=== PATIENT | male | born 1970 | race African-American/Black ===

== ENCOUNTER 2022-06-27 20:36 | Inpatient (IN) | payer OTHER ==
[~2022-06-27] VITALS: Ht 180.3 cm; Wt 105.6 kg
[2022-06-27] MEDS ORDERED: LISI-893 PO (21:49)
[2022-06-27] MEDS ORDERED: ONDANSETRON HCL 4 MG/2 ML VIAL IVP ONE (22:30)
[2022-06-27] MEDS ORDERED: MORPHINE SULFATE 4 MG/ML SYRINGE IVP ONE (22:30)
[2022-06-27] MEDS ORDERED: NITROGLYCERIN 2% (1 GM=INCH) PACKET TP ONE (22:45)
[2022-06-27 22:53] LABS: ANION GAP 10 mmol/L (8-16); CALCIUM, TOTAL 8.3 mg/dL (8.8-10.5); CARBON DIOXIDE 27 mmol/L (22-29); CHLORIDE 103 mmol/L (98-107); CREATININE 1.19 mg/dL (0.60-1.30); GLUCOSE,RANDOM 81 mg/dL (70-110); POTASSIUM 3.8 mmol/L (3.5-5.1); SODIUM SERUM 140 mmol/L (136-145); UREA NITROGEN, BLOOD 14 mg/dL (7-18)
[2022-06-27 22:54] LABS: BASOPHILS % (AUTO) 0.5 % (0.0-2.0); EOSINOPHILS % (AUTO) 1.2 % (1.0-6.0); HEMATOCRIT 41.3 % (41-53); HEMOGLOBIN 13.7 g/dL (13.5-17.5); LYMPHOCYTES # (AUTO) 2.9 K/uL (1.0-4.8); LYMPHOCYTES % (AUTO) 30.6 % (22.0-44.0); MEAN CORPUSCULAR HEMOGLOBIN 27.4 pg (26.0-34.0); MEAN CORPUSCULAR HGB CONC 33.2 G/dL (31.0-37.0); MEAN CORPUSCULAR VOLUME 83 fL (80-100); MONOCYTES % (AUTO) 10.2 % (2.0-9.0); NEUTROPHILS # (AUTO) 5.5 K/uL (1.8-7.7); NEUTROPHILS % (AUTO) 57.5 % (40.0-70.0); PLATELET COUNT (AUTO) 269 K/uL (150-450); RED CELL DISTRIBUTION WIDTH 14.9 % (11.5-14.5)
[2022-06-27 22:57] LABS: B-TYPE NATRIURETIC PEPTIDE 5 pg/mL (0-100); GLOMERULAR FILTR. RATE CALC > 60 mL/min (>60)
[2022-06-27] MEDS ORDERED: ONDANSETRON HCL 4 MG/2 ML VIAL IVP PRN (23:15)
[2022-06-27 23:18] LABS: ALANINE AMINOTRANSFERASE 26 U/L (12-78); ALBUMIN 3.5 g/dL (3.4-5.0); ALKALINE PHOSPHATASE 77 U/L (46-116); ASPARTATE AMINOTRANSFERASE 14 U/L (15-37); BILIRUBIN,TOTAL 0.3 mg/dL (0.1-1.0); CREATINE KINASE, TOTAL ONLY 119 U/L (39-308); TOTAL PROTEIN, SERUM 6.8 g/dL (6.4-8.2)
[2022-06-27] MEDS: ASPIRIN 81 MG CHEWABLE TABLET PO SCH (23:22)
[2022-06-27 23:31] LABS: COVID AG,FIA SOURCE NASAL SWAB
[2022-06-28 00:24] LABS: CHOL/HDL RATIO 3.2 (4.2-7.3); CHOLESTEROL 147 mg/dL (131-200); HDL CHOLESTEROL 46 mg/dL (40-60); LDL CHOL (CALC.) 89 mg/dL (0-130); TRIGLYCERIDES 62 mg/dL (15-150)
[2022-06-28 09:07] VITALS: BP 128/69
[2022-06-28] MEDS: ENOXAPARIN SODIUM 40 MG/0.4 ML PF SYRINGE SQ SCH (09:21)
[2022-06-28] MEDS ORDERED: NITROGLYCERIN 0.4 MG SUBLINGUAL TABLET #25 SL PRN (11:45)
[2022-06-28] MEDS: PANTOPRAZOLE SODIUM 40 MG DR TABLET PO SCH (11:58)
[2022-06-28 12:00] VITALS: BP 130/66
[2022-06-28] MEDS: ACETAMINOPHEN 325 MG TABLET PO PRN (15:14)
[2022-06-28 15:44] VITALS: BP 123/72
[2022-06-28 20:00] VITALS: BP 122/77
[2022-06-28] MEDS: ASPIRIN 81 MG CHEWABLE TABLET PO SCH (20:15)
[2022-06-29] VITALS (7 sets, daily range): BP systolic 124–141; BP diastolic 71–97
[2022-06-29] MEDS: ENOXAPARIN SODIUM 40 MG/0.4 ML PF SYRINGE SQ SCH (08:22)
[2022-06-29] MEDS: PANTOPRAZOLE SODIUM 40 MG DR TABLET PO SCH (08:22)
[2022-06-29] MEDS: ACETAMINOPHEN 325 MG TABLET PO PRN (19:58)
[2022-06-29] MEDS: ASPIRIN 81 MG CHEWABLE TABLET PO SCH (19:58)
[2022-06-29] MEDS ORDERED: MORPHINE SULFATE 2 MG/ML SYRINGE IVP ONE (23:20)
[2022-06-30 04:21] VITALS: BP 142/83
[2022-06-30 07:42] VITALS: BP 147/83
[2022-06-30] MEDS ORDERED: REGADENOSON 0.4 MG/5 ML PF SYRINGE IVP ONE (08:00)
[2022-06-30] MEDS: ENOXAPARIN SODIUM 40 MG/0.4 ML PF SYRINGE SQ SCH (09:00)
[2022-06-30] MEDS: PANTOPRAZOLE SODIUM 40 MG DR TABLET PO SCH (09:00)
[2022-06-30 11:20] VITALS: BP 129/85
[2022-06-30] MEDS ORDERED: ASPI81TA87 PO (12:11)
== END 2022-06-30 13:20 | DRG 392 ==
LOC: EMS 20:45 → 5S 06-28 04:37
PROVIDERS: ADMIT Internal Medicine; ATTEND Internal Medicine
DX: K21.9 Gastro-esophageal reflux disease without esophagitis (principal); I10 Essential (primary) hypertension; I20.9 Angina pectoris, unspecified; E66.9 Obesity, unspecified; Z79.82 Long term (current) use of aspirin; Z79.899 Other long term (current) drug therapy; Z82.49 Family history of ischemic heart disease and other diseases of the circulatory system; R00.1 Bradycardia, unspecified; Z68.33 Body mass index [BMI] 33.0-33.9, adult; Z20.822 Contact with and (suspected) exposure to COVID-19
CPT/HCPCS: 71045; 80053; 80061; 82550; 83880; 84484; 85025; 93005; 93306; 99285; J1650; J2270; J2405; 36415-L1; 36415-TC